=== PATIENT | female | born 1990 | race Caucasian/White ===

== ENCOUNTER 2021-02-14 13:36 | Emergency (ER) | payer BC ==
[~2021-02-14] VITALS: Ht 154.9 cm; Wt 83.9 kg
[2021-02-14] MEDS ORDERED: PRENA1 CHEW TA1.4 MG (14:40)
[2021-02-14] MEDS ORDERED: FLUOXETINE HCL60 MG (14:40)
== END 2021-02-14 19:55 | disposition home or self-care (01) ==
LOC: ER 13:36
DX: O02.1 Missed abortion (principal)